=== PATIENT | male | born 1975 | race Caucasian/White ===

== ENCOUNTER 2017-01-18 18:41 | Emergency (ER) | payer SELFPAY ==
[~2017-01-18] VITALS: Ht 190.5 cm; Wt 95.0 kg
[2017-01-18 18:42] VITALS: BP 152/85; PULSE 82; RESP 18; TEMP 98.4; O2SAT 98
[2017-01-18] MEDS ORDERED: ASPI325T PO (19:00)
--- NOTE | 2017-01-18 19:24 | RADRPT ---
EXAM DATE/TIME: 01/18/2017 19:05 [place] COMPARISON: No previous studies available for comparison. INDICATIONS : Right hand, 4th digit pain. MEDICAL HISTORY : None. SURGICAL HISTORY : None. ENCOUNTER: Initial ACUITY: 1 day PAIN SCORE: 10/10 LOCATION: Right hand, 4th digit FINDINGS: There is soft tissue swelling distal fourth digit without fracture or foreign body. CONCLUSION: Soft tissue swelling otherwise negative. Samuel Hillman MD FACR on January 18, 2017 at 19:22 Board Certified Radiologist. This report was verified electronically.
--- NOTE | 2017-01-18 19:28 | PD ---
HPI Chief Complaint: Laceration/Skin Injury Time Seen by Provider: 18:59 Travel History International Travel<30 days: No Contact w/Intl Traveler<30days: No Traveled to known affect area: No History of Present Illness HPI 41-year-old male presents to the emergency department for evaluation of right fourth digit laceration. Patient reports he dropped a 2 x 4 on the finger this morning at 8 AM. He reports the piece of lumber cut and crushed the finger. He wrapped the finger up in gauze and went to work. He reports the pain continued throughout the day prompting his visit to the emergency room this evening. He reports the pain is constant and throbbing. He denies numbness or tingling extremity he has full range of motion. Tetanus immunization is up-to- date. Patient is left-hand dominant. PFSH Past Medical History Heart Rhythm Problems: Yes (AFIB) Cardiovascular Problems: Yes (AF, ablation ) Cerebrovascular Accident: Yes (TIA) Influenza Vaccination: No Social History Alcohol Use: Yes (OCC) Tobacco Use: Yes (1PPD) Substance Use: No Allergies-Medications (Allergen,Severity, Reaction): Coded Allergies: No Known Allergies (Unverified , 01/18/17) Reported Meds & Prescriptions Reported Meds & Active Scripts Active Keflex (Cephalexin) 500 Mg Cap 500 Mg PO Q6H 7 Days Reported Aspirin 325 Mg Tab 325 Mg PO DAILY Review of Systems Except as stated in HPI: all other systems reviewed are Neg Physical Exam Narrative GENERAL: Well-nourished, well-developed patient. SKIN: Focused skin assessment warm/dry. HEAD: Normocephalic. EYES: No scleral icterus. No injection or drainage. NECK: Supple, trachea midline. No JVD or lymphadenopathy. CARDIOVASCULAR: Regular rate and rhythm without murmurs, gallops, or rubs. RESPIRATORY: Breath sounds equal bilaterally. No accessory muscle use. GASTROINTESTINAL: Abdomen soft, non-tender, nondistended. MUSCULOSKELETAL: No cyanosis, or edema. Right hand: 2.5 cm laceration to the fourth digit palmar aspect. No active bleeding. No tendon injury visualized. No foreign body visualized. Patient is able to flex and extend the digit against resistance. Normal sensation. Brisk cap refill. Data Data Last Documented VS Vital Signs Date Time Temp Pulse Resp B/P (MAP) Pulse Ox O2 Delivery O2 Flow Rate FiO2 01/18/17 18:42 98.4 82 18 152/85 (107) 98 Orders Orders Finger ([id number]) (01/18/17 ) Lidocaine 1% Inj (50 Ml) (Xylocaine 1% I (01/18/17 19:30) MDM Medical Decision Making Medical Screen Exam Complete: Yes Emergency Medical Condition: Yes Differential Diagnosis Finger laceration, tendon laceration, contusion, finger fracture Narrative Course 41-year-old male here with 2.5 centimeter laceration to the right fourth digit caused by a crush injury by a falling piece of lumber. The injury occurred approximately 12 hours ago. Patient reports that he cleansed the wound and wrapped it up after the event. The wound edges are by about 3 mm. There is no active bleeding. Patient has full range of motion against resistance. No foreign body visualized. No tendon injury visualized. X-ray was negative for foreign body or fracture. I believe closing the wound at this point would increase patient's risk of infection. Patient agrees and would like the wound to heal by secondary intention. The wound was thoroughly cleansed. Sterile dressing placed. Finger splint applied. Patient will be put on antibiotics and instructed to follow up with hand surgeon for recheck. She verbalizes understanding and agrees to plan Diagnosis Primary Impression: Finger laceration Qualified Codes: S61.214A - Laceration without foreign body of right ring finger without damage to nail, initial encounter Referrals: Primary Care Physician Additional Instructions: Closing the wound today would increase the risk of infection given the time of the injury. The area needs to be cleansed with soap and water daily and a clean dry dressing applied. Do not submerge the wound in water. Where the finger splint to immobilize and protect the area. Take the antibiotics as prescribed. Is important to make a follow-up appointment with the hand surgeon for recheck of the wound. Return to the emergency department if he developed new or worsening symptoms such as fever, chills, increasing pain, redness or swelling of the finger Scripts Cephalexin (Keflex) 500 Mg Cap 500 MG PO Q6H for Infection for 7 Days, #28 CAP 0 Refills Prov: Elizabteh Carlson 01/18/17 Disposition: 01 DISCHARGE HOME Condition: Stable Elizabeth Carlson Jan 18, 2017 19:27
[2017-01-18] MEDS ORDERED: LIDOCAINE HCL 1% 50 ML VIAL INFIL ONE (19:30)
[2017-01-18] MEDS ORDERED: CEPH-460 PO (19:57)
== END 2017-01-18 20:10 | disposition home or self-care (01) ==
LOC: PHEFT 18:41
DX: S61.214A Laceration without foreign body of right ring finger without damage to nail, initial encounter (principal); I48.91 Unspecified atrial fibrillation; F17.210 Nicotine dependence, cigarettes, uncomplicated; Z86.73 Personal history of transient ischemic attack (TIA), and cerebral infarction without residual deficits; W20.8XXA Other cause of strike by thrown, projected or falling object, initial encounter; Y99.8 Other external cause status
CPT/HCPCS: 29130; 73140

== ENCOUNTER 2017-10-11 19:03 | Emergency (ER) | payer SELFPAY ==
[~2017-10-11] VITALS: Ht 190.5 cm; Wt 100.0 kg
[~2017-10-11 19:03] MED LIST: ASPI-183 PO
[2017-10-11 19:15] VITALS: BP 133/78; PULSE 101; RESP 16; TEMP 98.4
--- NOTE | 2017-10-11 19:20 | PD ---
HPI Chief Complaint: Psychiatric Symptoms Time Seen by Provider: 19:18 Travel History International Travel<30 days: No Contact w/Intl Traveler<30days: No Traveled to known affect area: No History of Present Illness HPI 42-year-old male presents under [place] act initially by the Police Department. The patient reports that he has been feeling depressed for "a while." He reports that his mother 1 month ago and this is been exacerbating his feelings of depression. He has had passive suicidal thoughts which have been worsening. Today he drank 5 alcoholic drinks and is becoming increasingly depressed and his drove into a fire department who called the police and he was placed under Blanton act. Specifically he is afraid that he may do something that he regretted like shoot himself with 1 of his own guns. Symptoms are moderate, aggravated by alcohol use and the of his mother with no alleviating factors. He denies any homicidal ideation, auditory visual hallucinations, drug use. He has no medical complaints at this time. PFSH Past Medical History Hx Anticoagulant Therapy: No Atrial Fibrillation: Yes Heart Rhythm Problems: Yes (AFIB) Cardiac Catheterization: Yes Cardiovascular Problems: Yes (A FLUTTER) High Cholesterol: Yes Chemotherapy: No Congestive Heart Failure: No Cerebrovascular Accident: No Diabetes: No Respiratory: No Myocardial Infarction: Yes Past Surgical History Cardiac Surgery: Yes (ABLATION) Coronary Artery Bypass Graft: No Social History Alcohol Use: Yes (OCC) Tobacco Use: Yes (1PPD) Substance Use: No Allergies-Medications (Allergen,Severity, Reaction): Coded Allergies: No Known Allergies (Unverified Allergy, Unknown, 06/07/17) Reported Meds & Prescriptions Reported Meds & Active Scripts Active Reported Aspirin 325 Mg Tab 325 Mg PO DAILY Review of Systems Except as stated in HPI: all other systems reviewed are Neg Physical Exam Narrative GENERAL: Well-developed well-nourished male in no acute distress SKIN: Warm and dry. HEAD: Atraumatic. Normocephalic. EYES: Pupils equal and round. No scleral icterus. No injection or drainage. ENT: No nasal bleeding or discharge. Mucous membranes pink and moist. NECK: Trachea midline. No JVD. CARDIOVASCULAR: Regular rate and rhythm. No murmur appreciated. RESPIRATORY: No accessory muscle use. Clear to auscultation. Breath sounds equal bilaterally. GASTROINTESTINAL: Abdomen soft, non-tender, nondistended. Hepatic and splenic margins not palpable. MUSCULOSKELETAL: No obvious deformities. No clubbing. No cyanosis. No edema. NEUROLOGICAL: Awake and alert. No obvious cranial nerve deficits. Motor grossly within normal limits. Normal speech. PSYCHIATRIC: Depressed mood; insight and judgment normal. Data Data Last Documented VS Vital Signs Date Time Temp Pulse Resp B/P (MAP) Pulse Ox O2 Delivery O2 Flow Rate FiO2 10/11/17 19:15 98.4 101 16 133/78 (96) Orders Orders Complete Blood Count With Diff (10/11/17 19:18) Comprehensive Metabolic Panel (10/11/17 19:18) Thyroid Stimulating Hormone (10/11/17 19:18) Psych Screen (10/11/17 19:18) Drug Screen, Random Urine (10/11/17:18) Alcohol (Ethanol) (10/11/17 19:18) Labs Laboratory Tests Test 10/11/17 19:22 White Blood Count 9.4 TH/MM3 Red Blood Count 5.17 MIL/MM3 Hemoglobin 16.0 GM/DL Hematocrit 46.2 % Mean Corpuscular Volume 89.5 FL Mean Corpuscular Hemoglobin 30.9 PG Mean Corpuscular Hemoglobin Concent 34.6 % Red Cell Distribution Width 12.9 % Platelet Count 211 TH/MM3 Mean Platelet Volume 8.2 FL Neutrophils (%) (Auto) 59.0 % Lymphocytes (%) (Auto) 30.8 % Monocytes (%) (Auto) 7.5 % Eosinophils (%) (Auto) 1.8 % Basophils (%) (Auto) 0.9 % Neutrophils # (Auto) 5.5 TH/MM3 Lymphocytes # (Auto) 2.9 TH/MM3 Monocytes # (Auto) 0.7 TH/MM3 Eosinophils # (Auto) 0.2 TH/MM3 Basophils # (Auto) 0.1 TH/MM3 CBC Comment DIFF FINAL Differential Comment Blood Urea Nitrogen 10 MG/DL Creatinine 1.18 MG/DL Random Glucose 103 MG/DL Total Protein 7.6 GM/DL Albumin 4.0 GM/DL Calcium Level 8.7 MG/DL Alkaline Phosphatase 110 U/L Aspartate Amino Transf (AST/SGOT) 18 U/L Alanine Aminotransferase (ALT/SGPT) 24 U/L Total Bilirubin 0.3 MG/DL Sodium Level 141 MEQ/L Potassium Level 4.0 MEQ/L Chloride Level 111 MEQ/L Carbon Dioxide Level 19.1 MEQ/L Anion Gap 11 MEQ/L Estimat Glomerular Filtration Rate 68 ML/MIN Thyroid Stimulating Hormone 3rd Gen 2.240 uIU/ML Urine Opiates Screen NEG Urine Barbiturates Screen NEG Urine Amphetamines Screen NEG Urine Benzodiazepines Screen NEG Urine Cocaine Screen NEG Urine Cannabinoids Screen NEG Ethyl Alcohol Level 234 MG/DL MDM Medical Decision Making Medical Screen Exam Complete: Yes Emergency Medical Condition: Yes Medical Record Reviewed: Yes Differential Diagnosis Substance-induced mood disorder, adjustment reaction, acute psychosis, major depressive disorder, depressive disorder not otherwise specified Narrative Course Mental health screening discussed with the patient. Psychiatric screen ordered. Alcohol level is 234 otherwise his lab work is unremarkable. Medically cleared. Diagnosis Primary Impression: Medical clearance for psychiatric admission Matias Santana Oct 11, 2017 19:20
[2017-10-11 19:36] LABS: AUTOMATED NEUTROPHIL # 5.5 TH/MM3 (1.8-7.7); BASOPHIL # 0.1 TH/MM3 (0-0.2); BASOPHIL % 0.9 % (0.0-2.0); EOSINOPHIL # 0.2 TH/MM3 (0-0.4); EOSINOPHIL % 1.8 % (0.0-4.0); HEMATOCRIT 46.2 % (39.0-51.0); LYMPH % 30.8 % (9.0-44.0); LYMPHOCYTE # 2.9 TH/MM3 (1.0-4.8); MEAN CELL VOLUME 89.5 FL (80.0-100.0); MEAN CORPUSCULAR HEMOGLOBIN 30.9 PG (27.0-34.0); MEAN CORPUSCULAR HGB CONC 34.6 % (32.0-36.0); MEAN PLATELET VOLUME 8.2 FL (7.0-11.0); MONO % 7.5 % (0.0-8.0); MONOCYTE # 0.7 TH/MM3 (0-0.9); PLATELET COUNT 211 TH/MM3 (150-450); RED BLOOD COUNT 5.17 MIL/MM3 (4.50-5.90); RED CELL DISTRIBUTION WIDTH 12.9 % (11.6-17.2); WHITE BLOOD COUNT 9.4 TH/MM3 (4.0-11.0)
[2017-10-11 19:58] LABS: AST (GOT) 18 U/L (15-37); BICARBONATE 19.1 MEQ/L (21.0-32.0); BLOOD UREA NITROGEN 10 MG/DL (7-18); CALCIUM 8.7 MG/DL (8.5-10.1); CHLORIDE 111 MEQ/L (98-107); CREATININE 1.18 MG/DL (0.60-1.30); GLOMERULAR FILTRATION RATE 68 ML/MIN (>89); GLUCOSE,RANDOM 103 MG/DL (74-106); SODIUM (NA) 141 MEQ/L (136-145)
[2017-10-11 19:59] LABS: ALT (GPT) 24 U/L (12-78)
[2017-10-11 20:09] LABS: ALKALINE PHOSPHATASE 110 U/L (45-117); TOTAL BILIRUBIN ADULT 0.3 MG/DL (0.2-1.0); TOTAL PROTEIN 7.6 GM/DL (6.4-8.2)
[2017-10-11] MEDS ORDERED: LORazepam 2 MG/ML VIAL ONE (20:40)
[2017-10-11] MEDS ORDERED: diphenhydrAMINE HCL 50 MG/ML VIAL ONE (20:40)
[2017-10-11] MEDS ORDERED: HALOPERIDOL LACTATE 5 MG/ML AMP ONE (20:40)
[2017-10-11] MEDS ORDERED: HALOPERIDOL LACTATE 5 MG/ML AMP IM ONE (20:45)
[2017-10-11] MEDS ORDERED: diphenhydrAMINE HCL 50 MG/ML VIAL IM ONE (20:45)
[2017-10-11] MEDS ORDERED: LORazepam 2 MG/ML VIAL IM ONE (20:45)
[2017-10-12 02:16] VITALS: BP 108/63; PULSE 66; RESP 16; O2SAT 97
[2017-10-12 06:29] VITALS: BP 124/62; PULSE 70; RESP 17; O2SAT 97
--- NOTE | 2017-10-12 11:29 | PD ---
History of Present Illness Chief Complaint: Psychiatric Symptoms Time Seen by Provider: 11:15 Travel History International Travel<30 Days: No Contact w/Intl Traveler<30days: No Known affected area: No Legal Status Legal Status: Blanton Act Blanton Act Signed By: Rocio Arndt History of Present Illness: History of Present Illness HPI 42-year-old, , male with reported history of bipolar disorder, alcohol use disorder who presents under [place] act by the Police Department. The report alleges that the patient was feeling depressed, had been drinking alcohol , asked his to take him to the fire station because he was feeling unsafe around his weapons and did not want to do anything he would regret. He reports that his mother one month ago and he has been feeling sad. Today he states " Yesterday I had too much to drink and I did not want to do anything stupid. I feel better now and would like to go home". EMR reviewed. BAL on arrival was 234. Negative toxicology. He has one previous visit to ED on May in which he was complaining of chest pain and was intoxicated as well. No previous contact with [facility] psychiatry. Patient is seen. He is alert, oriented, calm, cooperative. He is clinically sober with no evidence of withdrawal. Speech is clear and logical, normal rate and tone. There is no psychosis, no sourav. Patient denies any suicidal or homicidal ideation, intent or plan. Reports he has been feeling depressed since the of his mother in May of this year. Patient also reports that he had been prescribed Depakote in the past but has not taken such medication for the past 2 years. He is requesting discharge at this time. He is agreeable to having his take the weapons from the home. He would like to get back on medication but has no insurance and could not afford t o purchase the Depakote. Telephone call to his at [phone]. She has no concerns if he is discharged. She will secure the weapons and have a neighbot take them from the home. . PFSH Past Medical History Hx Anticoagulant Therapy: No Atrial Fibrillation: Yes Heart Rhythm Problems: Yes (A FLUTTER) Cardiac Catheterization: Yes Cardiovascular Problems: Yes (A FLUTTER) High Cholesterol: Yes Chemotherapy: No Congestive Heart Failure: No Cerebrovascular Accident: No Diabetes: No Psychiatric: Yes (PTSD. ) Respiratory: No Myocardial Infarction: Yes Past Surgical History Cardiac Surgery: Yes (ABLATION) Coronary Artery Bypass Graft: No Psychiatric History Psychiatric History Hx Psychiatric Treatment: [facility]TS [facility] DEPAKOTE FOR HIS PTSD SYMPTOMS BUT DID NOT WANT TO PAY FOR IT. REPORTS THAT DEPAKOTE HELPED AND WOULD LIKE TO BE ON IT AGAIN. HAS ALSO TAKEN ZYPREXA AN OUTPATIENT. No psychiatric hospitalizations, no previous sucide attempts. History of Inpatient Treatment: No Guns or firearms in home: Yes ( will remove from the home) Social History Patient is from [place]. Came to [place] in 2017 to help care for his mother who in May. in April. Works in construction. Hx Alcohol Use: Yes Hx Tobacco Use: Yes Hx Substance Use: Yes (DENIES HX OF WITHDRAWAL SYMPTOMS) Substance Use Type: Alcohol Hx of Substance Use Treatment: No Family Psychiatric History Negative Allergies-Medications (Allergen,Severity, Reaction): Coded Allergies: No Known Allergies (Unverified Allergy, Unknown, 06/07/17) Reported Meds & Prescriptions Reported Meds & Active Scripts Active Reported Aspirin 325 Mg Tab 325 Mg PO DAILY Review of Systems Psychiatric: COMPLAINS OF: Depression Except as stated in HPI: all other systems reviewed are Neg Mental Status Examination Appearance: Disheveled Consciousness: Alert Orientation: x4 Motor Activity: Normal gait Speech: Unremarkable Language: Adequate Fund of Knowledge: Adequate Attention and Concentration: Adequate Memory: Unremarkable Mood: Appropriate Affect: Appropriate Thought Process & Associations: Intact, Logical, Goal directed Thought Content: Appropriate Hallucination Type: None Delusion Type: None Suicidal Ideation: No Suicidal Plan: No Suicidal Intention: No Homicidal Ideation: No Homicidal Plan: No Homicidal Intention: No Insight: Fair Judgment: Adequate MDM Medical Decision Making Medical Record Reviewed: Yes Assessment/Plan History of Present Illness HPI 42-year-old, , male with reported history of bipolar disorder, alcohol use disorder who presents under [place] act by the Police Department. The report alleges that the patient was feeling depressed, had been drinking alcohol , asked his to take him to the fire station because he was feeling unsafe around his weapons and did not want to do anything he would regret. He reports that his mother one month ago and he has been feeling sad. Today he states " Yesterday I had too much to drink and I did not want to do anything stupid. I feel better now and would like to go home". Once clinically sober patient denies any suicidal or homicidal ideation. His will secure the weapons. He would like to get back on medication. he will be provided information for SMA. Does not meet criteria for BA at this time. Adequate protective factors in place. Will lift BA. Advised regarding ETOH abstinence. Psychiatrically clear for discharge from the ED. Orders Orders Complete Blood Count With Diff (10/11/17:18) Comprehensive Metabolic Panel (10/11/17:18) Thyroid Stimulating Hormone (10/11/17:18) Psych Screen (10/11/17:18) Drug Screen, Random Urine (10/11/17:18) Alcohol (Ethanol) (10/11/17 19:18) Haloperidol Inj (Haldol Inj) (10/11/17 20:45) Lorazepam Inj (Ativan Inj) (10/11/17 20:45) Diphenhydramine Inj (Benadryl Inj) (10/11/17 20:45) Lorazepam Inj (Ativan Inj) (10/11/17 20:40) Diphenhydramine Inj (Benadryl Inj) (10/11/17 20:40) Haloperidol Inj (Haldol Inj) (10/11/17 20:40) Restraints Violent (10/11/17 22:15) Diet Regular Basic (10/12/17 Breakfast) Results Vital Signs Date Time Temp Pulse Resp B/P (MAP) Pulse Ox O2 Delivery O2 Flow Rate FiO2 10/12/17 06:29 70 17 124/62 (82) 97 Room Air 10/12/17 02:16 66 16 108/63 (78) 97 Room Air 10/11/17 19:15 98.4 101 16 133/78 (96) Laboratory Tests Test 10/11/17 19:22 White Blood Count 9.4 Red Blood Count 5.17 Hemoglobin 16.0 Hematocrit 46.2 Mean Corpuscular Volume 89.5 Mean Corpuscular Hemoglobin 30.9 Mean Corpuscular Hemoglobin Concent 34.6 Red Cell Distribution Width 12.9 Platelet Count 211 Mean Platelet Volume 8.2 Neutrophils (%) (Auto) 59.0 Lymphocytes (%) (Auto) 30.8 Monocytes (%) (Auto) 7.5 Eosinophils (%) (Auto) 1.8 Basophils (%) (Auto) 0.9 Neutrophils # (Auto) 5.5 Lymphocytes # (Auto) 2.9 Monocytes # (Auto) 0.7 Eosinophils # (Auto) 0.2 Basophils # (Auto) 0.1 CBC Comment DIFF FINAL Differential Comment Blood Urea Nitrogen 10 Creatinine 1.18 Random Glucose 103 Total Protein 7.6 Albumin 4.0 Calcium Level 8.7 Alkaline Phosphatase 110 Aspartate Amino Transf (AST/SGOT) 18 Alanine Aminotransferase (ALT/SGPT) 24 Total Bilirubin 0.3 Sodium Level 141 Potassium Level 4.0 Chloride Level 111 Carbon Dioxide Level 19.1 Anion Gap 11 Estimat Glomerular Filtration Rate 68 Thyroid Stimulating Hormone 3rd Gen 2.240 Urine Opiates Screen NEG Urine Barbiturates Screen NEG Urine Amphetamines Screen NEG Urine Benzodiazepines Screen NEG Urine Cocaine Screen NEG Urine Cannabinoids Screen NEG Ethyl Alcohol Level 234 Diagnosis Primary Impression: alcohol abuse with alcohol induced mood disorder Additional Impression: Medical clearance for psychiatric admission Psychiatrically Cleared: Yes Disposition: 01 DISCHARGE HOME Condition: Stable Problem Qualifiers Cecilia Marquis Oct 12, 2017 11:29
--- NOTE | 2017-10-12 12:28 | PD ---
Physical Exam Time Seen by Provider: 12:25 ABHILASH Traylor has evaluated the patient, lifted the Blanton act and cleared the patient for discharge. Data Data Last Documented VS Vital Signs Date Time Temp Pulse Resp B/P (MAP) Pulse Ox O2 Delivery O2 Flow Rate FiO2 10/12/17 06:29 70 17 124/62 (82) 97 Room Air 10/11/17 19:15 98.4 Orders Orders Complete Blood Count With Diff (10/11/17 19:18) Comprehensive Metabolic Panel (10/11/17:18) Thyroid Stimulating Hormone (10/11/17 19:18) Psych Screen (10/11/17 19:18) Drug Screen, Random Urine (10/11/17:18) Alcohol (Ethanol) (10/11/17 19:18) Haloperidol Inj (Haldol Inj) (10/11/17 20:45) Lorazepam Inj (Ativan Inj) (10/11/17 20:45) Diphenhydramine Inj (Benadryl Inj) (10/11/17 20:45) Lorazepam Inj (Ativan Inj) (10/11/17 20:40) Diphenhydramine Inj (Benadryl Inj) (10/11/17 20:40) Haloperidol Inj (Haldol Inj) (10/11/17 20:40) Restraints Violent (10/11/17 22:15) Diet Regular Basic (10/12/17 Breakfast) Labs Laboratory Tests Test 10/11/17 19:22 White Blood Count 9.4 TH/MM3 Red Blood Count 5.17 MIL/MM3 Hemoglobin 16.0 GM/DL Hematocrit 46.2 % Mean Corpuscular Volume 89.5 FL Mean Corpuscular Hemoglobin 30.9 PG Mean Corpuscular Hemoglobin Concent 34.6 % Red Cell Distribution Width 12.9 % Platelet Count 211 TH/MM3 Mean Platelet Volume 8.2 FL Neutrophils (%) (Auto) 59.0 % Lymphocytes (%) (Auto) 30.8 % Monocytes (%) (Auto) 7.5 % Eosinophils (%) (Auto) 1.8 % Basophils (%) (Auto) 0.9 % Neutrophils # (Auto) 5.5 TH/MM3 Lymphocytes # (Auto) 2.9 TH/MM3 Monocytes # (Auto) 0.7 TH/MM3 Eosinophils # (Auto) 0.2 TH/MM3 Basophils # (Auto) 0.1 TH/MM3 CBC Comment DIFF FINAL Differential Comment Blood Urea Nitrogen 10 MG/DL Creatinine 1.18 MG/DL Random Glucose 103 MG/DL Total Protein 7.6 GM/DL Albumin 4.0 GM/DL Calcium Level 8.7 MG/DL Alkaline Phosphatase 110 U/L Aspartate Amino Transf (AST/SGOT) 18 U/L Alanine Aminotransferase (ALT/SGPT) 24 U/L Total Bilirubin 0.3 MG/DL Sodium Level 141 MEQ/L Potassium Level 4.0 MEQ/L Chloride Level 111 MEQ/L Carbon Dioxide Level 19.1 MEQ/L Anion Gap 11 MEQ/L Estimat Glomerular Filtration Rate 68 ML/MIN Thyroid Stimulating Hormone 3rd Gen 2.240 uIU/ML Urine Opiates Screen NEG Urine Barbiturates Screen NEG Urine Amphetamines Screen NEG Urine Benzodiazepines Screen NEG Urine Cocaine Screen NEG Urine Cannabinoids Screen NEG Ethyl Alcohol Level 234 MG/DL MDM Supervised Visit with DONITA: No Narrative Course ABHILASH Brooks has evaluated the patient, lifted the Harvinder act and cleared the patient for discharge. Patient contracts safety. Denies suicidal or homicidal ideations. Patient will be provided community resource packet to [facility] for follow-up. Has friends and family for support. Patient was medically cleared by alternate provider prior to psych screening. Patient has been evaluated by psychiatry and and is now cleared for discharge. Diagnosis Primary Impression: alcohol abuse with alcohol induced mood disorder Referrals: [facility] (Out patient) [facility] Primary Care Physician Psychiatrist Alphonse [facility] Patient Instructions: Abuse of Alcohol (ED), Alcohol Dependence (ED), Alcohol Intoxication (ED), General Instructions, Mood Disorders (ED) Additional Instruction: Contract safety to your self and others Follow-up with psychiatry Follow-up with primary care provider Follow-up with [facility] Return to the emergency department immediately with worsening of symptoms Med/Other Pt SpecificInfo: No Change to Meds, No Meds Exist/No RX given Disposition: 01 DISCHARGE HOME Condition: Stable Jewell Freed Oct 12, 2017 12:28
== END 2017-10-12 12:49 | disposition home or self-care (01) ==
LOC: NEDAMB 19:03 → NEPJ 10-12 12:49
DX: F10.14 Alcohol abuse with alcohol-induced mood disorder (principal); Y90.7 Blood alcohol level of 200-239 mg/100 ml; E78.00 Pure hypercholesterolemia, unspecified; I25.2 Old myocardial infarction; I48.91 Unspecified atrial fibrillation; F31.9 Bipolar disorder, unspecified; F43.10 Post-traumatic stress disorder, unspecified; F17.210 Nicotine dependence, cigarettes, uncomplicated; Z79.82 Long term (current) use of aspirin
CPT/HCPCS: 80053; 80307; 84443; 85025; 96372; 99285; J1200; J1630; J2060